=== PATIENT | female | born 1950 | race Caucasian/White ===

== ENCOUNTER 2019-10-13 15:01 | Outpatient (CLI) | payer MEDICARE, SELFPAY ==
--- NOTE | 2019-10-13 15:15 | XR_ITS ---
WS: [id number] Bone mineral density performed on a Zadby, 10/13/2019 Clinical data: POST MENOPAUSAL Findings: The first 4 lumbar vertebral bodies demonstrated the bone mineral density of 1.065 g/cm2 for a young adult T score of -1.0. Measurement of the left hip reveals a bone mineral density of 0.893 g/cm2 with a young adult T score of -0.9. Measurement of the right hip reveals the bone mineral density of 0.866 g/cm2 for young adult T score of -1.1. XR/XR DEXA axial skeleton* [id number] Impression: 1. Normal bone mineral density of the lumbar spine and left hip. 2. Osteopenia of the right hip.
== END 2019-10-13 15:02 | disposition home or self-care (01) ==
LOC: RADWPI 15:04
PROVIDERS: Family Provider Registered Nurse; PCP Registered Nurse; Visit Provider Registered Nurse
DX: Z78.0 Asymptomatic menopausal state (principal); M85.88 Other specified disorders of bone density and structure, other site
CPT/HCPCS: 77080

== ENCOUNTER 2020-01-02 11:15 | Outpatient (CLI) | payer MEDICARE, SELFPAY ==
--- NOTE | 2020-01-02 11:23 | MM_ITS ---
WS: [id number] DIAGNOSTIC BILATERAL DIGITAL MAMMOGRAM WITH CAD HISTORY: HX OF BREAST CA COMPARISON: 12/23/2018, 12/18/2017 TECHNIQUE: Bilateral craniocaudad, mediolateral oblique, and mediolateral views are submitted. Comput er aided detection utilized. Breast composition: There are scattered areas of fibroglandular density. Volume loss and postsurgical changes in the LEFT breast. Dystrophic calcification noted posteriorly. Extensive vascular calcifica tions. There is mild skin thickening and increased trabecular thickening. Overall no change. MM/[place] [id number] IMPRESSION: BI-RADS: 2-Benign FOLLOW UP: 1 Year Follow-up
== END 2020-01-02 11:16 | disposition home or self-care (01) ==
LOC: RADSHAW 11:20
PROVIDERS: PCP Registered Nurse; Visit Provider Registered Nurse
DX: Z85.3 Personal history of malignant neoplasm of breast (principal)
CPT/HCPCS: 77066

== ENCOUNTER → 2020-03-29 15:46 | Outpatient (BNVA) | payer MEDICARE, SELFPAY | PROVIDERS: PCP Registered Nurse; Visit Provider Nurse Practitioner Family | DX: Z11.59 Encounter for screening for other viral diseases (principal) | CPT/HCPCS: 87635 ==

== ENCOUNTER 2021-01-05 08:05 | Outpatient (CLI) | payer MEDICARE, SELFPAY ==
--- NOTE | 2021-01-05 08:11 | MM_ITS ---
WS: [id number] DIAGNOSTIC BILATERAL DIGITAL MAMMOGRAM WITH CAD HISTORY: HX OF BREAST CA COMPARISON: 01/02/2020 and 12/23/2018 TECHNIQUE: Bilateral craniocaudad, mediolateral oblique, and mediolateral views are submitted. Comput er aided detection utilized. Breast composition: There are scattered areas of fibroglandular density. Mild volume loss in the LEFT breast. Dystrophic calcification in the posterior inferior LEFT breast. There is also mild skin thic kening and a vascular calcification which are all stable. Mild breast distortion architectural distor tion is similar to prior examinations. No recurrent mass. MM/[place] [id number] IMPRESSION: BI-RADS: 2-Benign FOLLOW UP: 1 Year Follow-up
== END 2021-01-05 08:06 | disposition home or self-care (01) ==
LOC: RADSHAW 08:09
PROVIDERS: PCP Registered Nurse; Visit Provider Registered Nurse
DX: Z85.3 Personal history of malignant neoplasm of breast (principal); R92.1 Mammographic calcification found on diagnostic imaging of breast
CPT/HCPCS: 77066

== ENCOUNTER 2022-01-06 13:44 | Outpatient (CLI) | payer MEDICARE, SELFPAY ==
--- NOTE | 2022-01-06 13:58 | MM_ITS ---
WS: [id number] BILATERAL 3D TOMOSYNTHESIS DIGITAL DIAGNOSTIC MAMMOGRAPHY WITH CAD CLINICAL INFORMATION: HX OF BREAST CA HISTORY: COMPARISON: January 05, 2021 TECHNIQUE: Bilateral CC, MLO, and ML views. FINDINGS: Scattered fibroglandular densities bilaterally. Mild volume loss LEFT breast. Dystrophic calcificatio ns posterior inferior LEFT breast similar in appearance. Mild skin thickening and vascular calcificat ions. Architectural distortion anterior LEFT breast is similar in appearance. Surgical clips LEFT axi lla. No suspicious focal mass, asymmetry, calcifications, or architectural distortion. No evidence of peggy gnancy. MM/[place] [id number] IMPRESSION: BI-RADS: 2-Benign FOLLOW UP: 1 Year Follow-up Recommend return to annual diagnostic mammography.
== END 2022-01-06 13:45 | disposition home or self-care (01) ==
LOC: RAD 13:45
PROVIDERS: PCP Registered Nurse; Visit Provider Registered Nurse
DX: Z85.3 Personal history of malignant neoplasm of breast (principal)
CPT/HCPCS: 77062

== ENCOUNTER → 2022-03-30 10:14 | Outpatient (BNVA) | payer MEDICARE, SELFPAY | PROVIDERS: PCP Registered Nurse; Visit Provider Nurse Practitioner Family | DX: Z00.00 Encounter for general adult medical examination without abnormal findings (principal); Z79.899 Other long term (current) drug therapy | CPT/HCPCS: 80053; 80061; 83735 ==

== ENCOUNTER → 2023-01-05 10:37 | Outpatient (BNVA) | payer MEDICARE, SELFPAY | PROVIDERS: PCP Registered Nurse; Visit Provider Nurse Practitioner Family | DX: R53.83 Other fatigue (principal); I10 Essential (primary) hypertension; E78.5 Hyperlipidemia, unspecified; Z85.3 Personal history of malignant neoplasm of breast; Z90.89 Acquired absence of other organs; Z98.51 Tubal ligation status; Z98.890 Other specified postprocedural states; Z98.49 Cataract extraction status, unspecified eye; Z96.649 Presence of unspecified artificial hip joint; Z90.710 Acquired absence of both cervix and uterus; N63.0 Unspecified lump in unspecified breast | CPT/HCPCS: 80053; 80061; 85025 ==

== ENCOUNTER 2023-01-23 08:37 | Outpatient (CLI) | payer MEDICARE, SELFPAY ==
--- NOTE | 2023-01-23 08:45 | MM_ITS ---
WS: [id number] DIAGNOSTIC BILATERAL DIGITAL BREAST TOMOSYNTHESIS MAMMOGRAPHY WITH CAD HISTORY: History of cancer. COMPARISON: 01/06/2022, 01/05/2021, 01/02/2020 TECHNIQUE: Bilateral craniocaudad, mediolateral oblique, and mediolateral views are submitted with to mosynthesis and SM. Computer aided detection utilized. Breast composition: There are scattered areas of fibroglandular density. Mild volume loss LEFT breast with dystrophic calcifications and skin thickening which are stable. Surgical clips in the RIGHT axi lla from prior maye dissection. No suspicious mass. No calcifications or recurrence. IMPRESSION: MM/[place] [id number] BI-RADS: 2-Benign FOLLOW UP: 1 Year Follow-up
== END 2023-01-23 08:38 | disposition home or self-care (01) ==
PROVIDERS: PCP Registered Nurse; Visit Provider Registered Nurse
DX: Z85.3 Personal history of malignant neoplasm of breast (principal); N63.20 Unspecified lump in the left breast, unspecified quadrant
CPT/HCPCS: 77062; G0279

== ENCOUNTER → 2023-02-13 11:19 | Outpatient (BNVA) | payer MEDICARE, SELFPAY | PROVIDERS: PCP Registered Nurse; Visit Provider Podiatrist Foot & Ankle Surgery | DX: S82.891A Other fracture of right lower leg, initial encounter for closed fracture; S82.51XA Displaced fracture of medial malleolus of right tibia, initial encounter for closed fracture; W55.19XA Other contact with horse, initial encounter | CPT/HCPCS: 73610; 73630; 99203 ==

== ENCOUNTER 2023-02-23 06:00 | Outpatient (CLI) | payer MEDICARE, SELFPAY | END 2023-02-24 23:59 | disposition home or self-care (01) | LOC: SPT 02-26 10:05 | PROVIDERS: PCP Registered Nurse; Visit Provider Podiatrist Foot & Ankle Surgery | DX: Z46.89 Encounter for fitting and adjustment of other specified devices (principal); S82.51XA Displaced fracture of medial malleolus of right tibia, initial encounter for closed fracture; W19.XXXA Unspecified fall, initial encounter | CPT/HCPCS: 97760; 99213; L4361 ==

== ENCOUNTER → 2023-02-23 07:53 | Outpatient (BNVA) | payer MEDICARE, SELFPAY | PROVIDERS: PCP Registered Nurse; Visit Provider Podiatrist Foot & Ankle Surgery | DX: S82.51XA Displaced fracture of medial malleolus of right tibia, initial encounter for closed fracture; W19.XXXA Unspecified fall, initial encounter; Z46.89 Encounter for fitting and adjustment of other specified devices | CPT/HCPCS: 73610; 97760; 99213; L4361 ==

== ENCOUNTER → 2023-03-16 10:17 | Outpatient (BNVA) | payer MEDICARE, SELFPAY | PROVIDERS: PCP Registered Nurse; Visit Provider Podiatrist Foot & Ankle Surgery | DX: S82.51XA Displaced fracture of medial malleolus of right tibia, initial encounter for closed fracture; W19.XXXA Unspecified fall, initial encounter | CPT/HCPCS: 73610; 99213 ==

== ENCOUNTER → 2023-03-30 10:02 | Outpatient (BNVA) | payer MEDICARE, SELFPAY | PROVIDERS: PCP Registered Nurse; Visit Provider Podiatrist Foot & Ankle Surgery | DX: S82.201A Unspecified fracture of shaft of right tibia, initial encounter for closed fracture; X58.XXXA Exposure to other specified factors, initial encounter | CPT/HCPCS: 73610; 99213 ==

== ENCOUNTER → 2023-04-13 10:35 | Outpatient (BNVA) | payer MEDICARE, SELFPAY | PROVIDERS: PCP Registered Nurse; Visit Provider Podiatrist Foot & Ankle Surgery | DX: S82.51XA Displaced fracture of medial malleolus of right tibia, initial encounter for closed fracture (principal); X58.XXXA Exposure to other specified factors, initial encounter | CPT/HCPCS: 99213 ==

== ENCOUNTER → 2024-01-22 13:49 | Outpatient (BNVA) | payer MEDICARE, SELFPAY | PROVIDERS: PCP Registered Nurse; Visit Provider Registered Nurse | DX: Z13.6 Encounter for screening for cardiovascular disorders (principal); E55.9 Vitamin D deficiency, unspecified | CPT/HCPCS: 80053; 80061; 82306; 85025 ==

== ENCOUNTER → 2024-01-24 13:53 | Outpatient (BNVA) | payer MEDICARE, SELFPAY | PROVIDERS: PCP Registered Nurse; Referring Provider Registered Nurse; Visit Provider Student in an Organized Health Care Education/Training Program | DX: Z12.11 Encounter for screening for malignant neoplasm of colon (principal) | CPT/HCPCS: 99024; 99204 ==

== ENCOUNTER 2024-02-06 14:38 | Outpatient (CLI) | payer MEDICARE, SELFPAY ==
--- NOTE | 2024-02-06 15:00 | MM_ITS ---
WS: [id number] BILATERAL 3D TOMOSYNTHESIS DIGITAL DIAGNOSTIC MAMMOGRAPHY WITH CAD CLINICAL INFORMATION: Z85.3 - Personal history of malignant neoplasm of breast HISTORY: Prior postoperative changes LEFT lumpectomy. COMPARISON: 2022 TECHNIQUE: Bilateral CC, MLO, and ML views. FINDINGS: Scattered fibroglandular densities bilaterally. Dystrophic and vascular calcification LEFT breast. Ramirez rgical clips LEFT axilla. Prior postoperative changes LEFT lumpectomy with parenchymal scarring and v olume loss. This is similar to previous. No suspicious focal mass, asymmetry, calcifications, or architectural distortion. No evidence of peggy gnancy. MM/MM diag BI tomosynthesis [id number] IMPRESSION: DENSITY: There are scattered areas of fibroglandular density. BI-RADS: 2 - Benign. FOLLOW UP: 1 Year Follow-up Recommend return to annual diagnostic mammography.
--- NOTE | 2024-02-06 15:30 | XR_ITS ---
WS: [id number] DEXA (DUAL ENERGY X-RAY ABSORPTIOMETRY) Bone mineral density was performed using a Superbly machine. HISTORY: M81.0 - Age-related osteoporosis without current patholog... COMPARISON: 10/13/2019 Lumbar spine BMD (L1-L4): 1.0 T score: -1.2 Z score: 0.5 Total hip BMD: Left: 0.9. T score: -1.2 Z score: 0.5 Left forearm BMD: 0.6. T score: -3.1 Z score: -0.9 10 year probability of a major osteoporotic fracture is 10.7%. Compared to the prior study from 10/13/2019. Lumbar spine bone mineral density has decreased by 3.1%. LEFT hip bone mineral density has decreased by 3.4%. XR/XR DEXA axial skeleton* [id number] IMPRESSION: Osteoporosis AT based upon the WHO classification for females. Significant decrease in bone mineral density within the lumbar spine and LEFT h ip since the prior study.
== END 2024-02-06 14:39 | disposition home or self-care (01) ==
LOC: RAD 14:38
PROVIDERS: PCP Registered Nurse; Visit Provider Registered Nurse
DX: Z85.3 Personal history of malignant neoplasm of breast (principal); M81.0 Age-related osteoporosis without current pathological fracture; R92.323 Mammographic fibroglandular density, bilateral breasts; R92.1 Mammographic calcification found on diagnostic imaging of breast; Z98.890 Other specified postprocedural states
CPT/HCPCS: 77062; 77080; G0279

== ENCOUNTER 2024-03-24 05:52 | Day surgery (SDC) | payer MEDICARE, SELFPAY ==
[2024-03-24 06:04] VITALS: BMI 24.2
[2024-03-24 06:07] VITALS: BP 129/73; PULSE 67; RESP 18; TEMP 36.1; O2SAT 97
[2024-03-24] MEDS: sodium chloride 0.9% 1,000 ML 30 ML IV (06:12)
--- NOTE | 2024-03-24 06:17 | ANES.PREANE2 ---
Pre-Anesthetic Assessment Height/Weight: Height 5 ft 6 in Weight 150 lb Temp Pulse Resp BP Pulse Ox O2 Del Method 97 F L 67 18 129/73 97 Room Air 03/24/24 06:07 03/24/24 06:07 03/24/24 06:07 03/24/24 06:07 03/24/24 06:07 03/24/24 06:07 Preop Diagnosis: Screening colonoscopy Operation Date: 03/24/24 07:00 Proposed Procedures p Colonoscopy 55426, g0121, z12.11(Not Applicable) - Eder Whelan MD Was Beta Demetrice taken within 24 hours: N/A Was Clonidine taken within 24 hours: N/A Last intake: Intake Last Liquid Date 03/23/24 Last Liquid Time 22:30 Last Solid Date 03/22/24 Last Solid Time 18:00 Social No alcohol and No tobacco Exam alert, oriented x 3, clear to auscultation bilaterally and regular rate & rhythm Airway Submandibular: within normal limits Cervical ROM: within normal limits Mallampati: Class I Dentition: full Anesthetic Plan ASA status: 2 Anesthesia: MAC Other: Patient has a history of PONV, prior colonoscopy without issues Completed bowel prep History of breast cancer in 2009, lymph node dissection on the left side. In remission Patient takes no medications at baseline Denies any cardiac or pulmonary issues METs greater than 4 Plan for MAC anesthetic Medications/Allergies Home Medications Medication Instructions Recorded Confirmed Last Taken Type metronidazole 0.75 % topical gel 0.75 applic topical DAILY 01/24/24 03/24/24 03/23/24 History Allergies Allergy/AdvReac Type Severity Reaction Status Date / Time acetaminophen [From Tylenol] Allergy Intermediate rash Verified 03/20/24 13:55 [facility] Anesthesia Medical History History of breast cancer 2009 Surgical History History of total hysterectomy 2020 History of hip replacement, total right hip 2021 History of cervical spinal surgery 2019 History of cataract extraction 2020 History of lumpectomy of left breast 2010 History of tubal ligation History of tonsillectomy Family History Grandfather CAD (coronary artery disease) paternal Father CAD (coronary artery disease) Diabetes Lung disease Mother Cancer, Onset Age: 45 ovarian Denies family history of Clotting disorder Dementia Hyperlipidemia Chronic kidney disease (CKD) Hypertension Stroke Social History Smoking and tobacco/nicotine status: never used tobacco/nicotine Quit status (tobacco/nicotine): has quit using Former quit date comment: 50 years ago Alcohol intake: never Substance/Drug Use: never Adopted: No Caregiver/support person: No Lives independently: No Household members: spouse Marital status: service: No Current occupational status: retired Sexually active: Yes Do you think of yourself as: Straight/Heterosexual Current gender identity: Female Ade/Hoahaoism: [employer] Data Anesthesia Cardiac Studies: No Data to Display
--- NOTE | 2024-03-24 07:01 | P.HP_ITS ---
Same Day Surgery H&P Indication for Procedure/HPI DATE OF PROCEDURE: March 24, 2024 CHIEF COMPLAINT/INDICATIONFOR SURGICAL PROCEDURE: Screening colonoscopy PREOP DIAGNOSIS: Screening colonoscopy PLANNED PROCEDURE: Operation Date: 03/24/24 07:00 Proposed Procedures p Colonoscopy [id number], g0121, z12.11(Not Applicable) - Eder Whelan MD Medications/Allergies* Home Medications Medication Instructions Recorded Confirmed Type metronidazole 0.75 % topical gel 0.75 applic topical DAILY 01/24/24 03/24/24 History Allergies/Adverse Reactions Allergy/AdvReac Type Severity Reaction Status Date / Time acetaminophen [From Tylenol] Allergy Intermediate rash Verified 03/20/24 13:55 Current Medications: Generic Name Dose Route Start Last Admin Trade Name Freq PRN Reason Stop Dose Admin Sodium Chloride 1,000 mls @ 30 mls/hr 03/24/24 06:00 03/24/24 06:12 Sodium Chloride 0.9% IV 30 mls/hr .Q24H CHIDI Administration Pertinent History/Comorbid Conditions* Medical History (Updated 01/22/24 @ 15:44 by IVANA Ortega) History of breast cancer 2009 Surgical History (Updated 01/05/23 @ 10:30 by IVANA Turcios) History of total hysterectomy 2020 History of hip replacement, total right hip 2021 History of cervical spinal surgery 2019 History of cataract extraction 2020 History of lumpectomy of left breast 2010 History of tubal ligation History of tonsillectomy Family History (Updated 01/05/23 @ 10:09 by Malka Caldwell LPN) Mother Diabetes Father CAD (coronary artery disease) Grandfather paternal Father Lung disease Father Cancer Mother, Onset Age: 45 ovarian Denies family history of Clotting disorder Dementia Hyperlipidemia Chronic kidney disease (CKD) Hypertension Stroke Social History Smoking and tobacco/nicotine status: never used tobacco/nicotine Quit status (tobacco/nicotine): has quit using Former quit date comment: 50 years ago Alcohol intake: never Substance/Drug Use: never Adopted: No Caregiver/support person: No Lives independently: No Household members: spouse Marital status: service: No Current occupational status: retired Sexually active: Yes Do you think of yourself as: Straight/Heterosexual Current gender identity: Female Ade/Denominational: [employer] Pertinent Exam Findings alert, oriented x 3, clear to auscultation bilaterally, regular rate & rhythm and procedure specific exam findings Abdomen soft, NT, ND Recommendations Surgery/Procedure today Other Plans: Proceed with endoscopy today Coding Level of Care Code Acute Code for Chg Fwd
[2024-03-24 07:39] VITALS: BP 102/63; PULSE 80; RESP 16; TEMP 36.3; O2SAT 100
--- NOTE | 2024-03-24 07:44 | ANE.PACU2 ---
Inpatient post-anesthesia follow up: Airway intact: Yes Vital signs: Temperature 97.4 F Pulse Rate 72 Respiratory Rate 16 Blood Pressure 111/64 Pulse Oximetry 99 Oxygen Delivery Me thod Room Air Oxygen Flow Rate Fraction of Inspir ed Oxygen Hydration adequate: Yes Nausea and vomiting: No Pain level: 1
[2024-03-24 07:49] VITALS: BP 104/67; PULSE 82; RESP 16; O2SAT 99
[2024-03-24 08:04] VITALS: BP 111/64; PULSE 72; RESP 16; O2SAT 99
--- NOTE | 2024-03-24 08:10 | PC.NURSE ---
Pt alert and oriented and ready for discharge. Pt instructed to sit on side of bed before standing to make sure she was not dizzy before standing. Pt at bedside. Nurse stepped out of room for pt privacy. Nurse reentered room approximately 5 minutes later and found pt sitting on floor with pants and shirt on, finishing putting shoes on. Nurse asked why pt on floor. Pt states she fell. Pt stated she slid to floor. Pt states she did hit head. Pt assisted to standing position. VSS. Neuro check WNL. No hematoma or bleeding noted where pt states she hit head. Pt instructed she should go to ER for further eval due to fall and hitting head. Pt states she is fine and does not need to go to ER. Pt encouraged again to go to ER for evaluation. Pt refused. Pt taken off department in wheelchair. Assisted into vehicle without difficulty. Pt again states she is fine and denies need to go to ER. Pt and instructed to return to ER for headache, pain, dizziness, nausea, or change in LOC. Pt and verbalized understanding. Dr. Whelan notified of fall verbally.
== END 2024-03-24 08:18 | disposition home or self-care (01) ==
PROVIDERS: PCP Registered Nurse; Visit Provider Student in an Organized Health Care Education/Training Program
PROC: 0DJD8ZZ Inspection of Lower Intestinal Tract, Via Natural or Artificial Opening Endoscopic (ICD-10-PCS; CPT 45378; principal; 2024-03-24 07:00)
DX: Z12.11 Encounter for screening for malignant neoplasm of colon (principal); D12.8 Benign neoplasm of rectum; Z85.3 Personal history of malignant neoplasm of breast
CPT/HCPCS: 45380; 45385; 88305; J2704; J3490; J7030

== ENCOUNTER → 2024-04-08 08:56 | Outpatient (BNVA) | payer MEDICARE, SELFPAY | PROVIDERS: PCP Registered Nurse; Visit Provider Student in an Organized Health Care Education/Training Program | DX: Z09 Encounter for follow-up examination after completed treatment for conditions other than malignant neoplasm (principal) | CPT/HCPCS: 99213 ==

== ENCOUNTER → 2025-02-20 10:24 | Outpatient (BNVA) | payer MEDICARE, SELFPAY | PROVIDERS: PCP Registered Nurse; Visit Provider Registered Nurse | DX: Z00.00 Encounter for general adult medical examination without abnormal findings (principal); Z79.899 Other long term (current) drug therapy; Z13.1 Encounter for screening for diabetes mellitus; Z13.6 Encounter for screening for cardiovascular disorders | CPT/HCPCS: 80053; 80061; 81000; 83036; 85025; 87086 ==

== ENCOUNTER 2025-03-04 11:20 | Outpatient (CLI) | payer MEDICARE, SELFPAY ==
--- NOTE | 2025-03-04 11:30 | MM_ITS ---
WS: [id number] BILATERAL 3D TOMOSYNTHESIS DIGITAL DIAGNOSTIC MAMMOGRAPHY WITH CAD CLINICAL INFORMATION: Z85.3 - Personal history of malignant neoplasm of breast HISTORY: LEFT breast cancer. COMPARISON: 02/06/2024 TECHNIQUE: Bilateral CC, MLO, and ML views. FINDINGS: Scattered fibroglandular densities bilaterally. Surgical clips LEFT axilla. Postoperative changes LEFT lumpectomy with treatment-related changes and volume loss. No suspicious focal mass, asymmetry, calcifications, or architectural distortion. No evidence of malignancy. MM/MM diag tomosynthesis [id number] IMPRESSION: DENSITY: There are scattered areas of fibroglandular density. BI-RADS: 2 - Benign. FOLLOW UP: 1 Year Follow-up Recommend return to annual diagnostic mammography.
== END 2025-03-04 11:21 | disposition home or self-care (01) ==
LOC: RAD 11:23
PROVIDERS: PCP Registered Nurse; Visit Provider Registered Nurse
DX: Z85.3 Personal history of malignant neoplasm of breast (principal); R92.323 Mammographic fibroglandular density, bilateral breasts
CPT/HCPCS: 77062; G0279